=== PATIENT | male | born 1935 | race Caucasian/White ===

== ENCOUNTER 2018-06-04 13:28 | Inpatient (IN) | payer MEDICARE, MEDICAID ==
[2018-06-04 14:17] LABS: #Lymphocytes 0.5 thou/uL (1.20-3.40); #Monocytes 0.6 thou/uL (0.11-0.59); #Neutrophils 7.2 thou/uL (1.40-6.50); %Basophils 0.2 % (0.0-1.0); %Eosinophils 0.4 % (0.0-10.0); %Lymphocytes 5.7 % (21.0-51.0); %Monocytes 7.4 % (0.0-10.0); %Neutrophils 86.4 % (42.0-75.0); Mean Corpuscular HGB CONC 32.4 g/dL (32.0-36.0); Mean Corpuscular Hemoglobin 30.6 pg (27.0-31.0); Mean Corpuscular Volume 94.5 fL (78.0-98.0); Mean Platelet Volume 8.5 fL (7.4-10.4); Platelet Count 143 thou/uL (130-400); Red Blood Cell (RBC) Count 4.26 mill/uL (4.70-6.10); White Blood Cell (WBC) Count 8.3 thou/uL (4.8-10.8)
[2018-06-04] MEDS ORDERED: Piperacillin/Tazobactam 4.5 GM VIAL ONE (14:37)
[2018-06-04 14:38] LABS: ALT (SGPT) 49 U/L (8-55); AST (SGOT) 55 U/L (5-34); Albumin 3.2 g/dL (3.4-4.8); Alkaline Phosphatase 71 U/L (40-150); Anion Gap 9 mmol/L (10-20); BUN (Urea Nitrogen) 17 mg/dL (8.4-25.7); Bilirubin, Total 0.7 mg/dL (0.2-1.2); Calc. Creatinine Clearance 0 mL/min (70-130); Calcium 7.8 mg/dL (7.8-10.44); Carbon Dioxide 26 mmol/L (23-31); Chloride 105 mmol/L (98-107); Estimated GFR-MDRD 63; Globulin 2.8 g/dL (2.4-3.5); Glucose 105 mg/dL (83-110); Potassium 3.6 mmol/L (3.5-5.1); Sodium 136 mmol/L (136-145)
--- NOTE | 2018-06-04 14:58 | RAD ---
AP CHEST: HISTORY: Sepsis. Fever. Cough. COMPARISON: 02/05/2016 FINDINGS: The lungs appear clear of infiltrate. The heart is mildly enlarged. calcified granuloma in the left lung base again noted. Dense aortic calcification. IMPRESSION: There are chronic changes, as described. No focal infiltrate. POS: [facility]
--- NOTE | 2018-06-04 15:01 | CT ---
CT BRAIN WITHOUT CONTRAST: HISTORY: [facility] out of wheelchair today [facility] the [facility]. Altered mental status. COMPARISON: None. TECHNIQUE: Multiple contiguous axial images were obtained in a CT of the brain without contrast. FINDINGS: There are a few scattered hypodensities in the subcortical and periventricular white matter, likely s econdary to small vessel ischemic disease. No large confluent infarction is seen. There is no evide nce of hydrocephalus, intracranial hemorrhage, or extraaxial fluid collections. The calvarium and overlying soft tissues are unremarkable. The visualized paranasal sinuses and mast oid air cells are well aerated. IMPRESSION: No evidence of acute intracranial abnormality. POS: [facility]
[2018-06-04] MEDS ORDERED: Oseltamivir 75 MG CAP PO SCH ×2 (15:15→21:00)
[2018-06-04 15:45] LABS: Bilirubin Small (Negative); Blood, Urine Large (Negative); Clarity CLOUDY (Clear); Glucose, Urine (Dipstick) Negative (Negative); Leukocyte Negative (Negative); Nitrite Negative (Negative); Protein, Urine (Dipstick) 30 mg/dL (Neg-Trace); Specific Gravity, Urine 1.031 (1.002-1.036)
[2018-06-04 15:49] LABS: Bacteria/HPF None Seen HPF (None Seen); Hyaline Casts/LPF 4-6 HYALINE CAST LPF (0-3 Hyaline); Pathc Cast-AUWi Flag 0.54 (0-2.49); RBC/HPF GREATER THAN 50-TNTC HPF (0-3); Squamous Epithelial 0-3 HPF (0-3); WBC/HPF 0-3 HPF (0-3)
[2018-06-04] MEDS ORDERED: Ondansetron ODT 4 MG TAB PO PRN (16:06)
[2018-06-04] MEDS ORDERED: Zolpidem Tartrate 5 MG TAB PO PRN (16:06)
[2018-06-04 17:02] VITALS: BMI 27.0
--- NOTE | 2018-06-04 17:09 | HP ---
PRIMARY CARE PHYSICIAN: Dr. Ferro in [place]. The patient referred to [facility] by [facility]. The patient "fell out" this morning, just felt himself getting weaker and weaker, then fell to his knees and could not get up. He states he had been feeling bad for several days, coughing. No documented fever or chills. He does have some headaches and muscle aches. In the emergency room, he was found to be hypoxic. A flu A test was positive. Chest x-ray was nonrevealing. He was referred to the [facility]. PAST MEDICAL HISTORY: He had coronary artery disease with PCI 3 years ago, has a history of dyslipidemia and hypertension. He states he does not know his medications, but that he is on the same medications, [address] Rider discharged him on last; metoprolol 25 twice a day, lisinopril 10 mg a day, Plavix 75 mg a day, Lipitor 80 mg a day, aspirin 325 mg a day, and amiodarone 200 mg twice a day. ALLERGIES: NO KNOWN DRUG ALLERGIES. PAST SURGICAL HISTORY: He had an inguinal hernia repair as a child, otherwise negative, other than the PCI as mentioned above. FAMILY HISTORY: No coronary artery disease, hypertension, diabetes, or other inheritable diseases. SOCIAL HISTORY: He is . His had a stroke 5 years ago, and his stepdaughter took her away, and they have had no contact since. He states his stepdaughter told her he was going to get a divorce for her, but this has not happened that he knows of in the past 5 years. He is full code status, but was unable to name a surrogate decision maker. No tobacco. No alcohol. REVIEW OF SYSTEMS: GENERAL: No dizziness or fainting. EYES: No double vision, blurred vision, or flashing light. EAR, NOSE, AND THROAT: No ear pain or drainage. No nasal bleeding. No trouble swallowing. CARDIAC: No chest pain, orthopnea, or paroxysmal nocturnal dyspnea. RESPIRATIONS: He has been coughing a lot. He has had some wheezes in the morning, produced clear mucus sputum. GASTROINTESTINAL: No nausea, vomiting, diarrhea, or constipation. GENITOURINARY: No hematuria, dysuria, or nocturia. He does have a decreased stream. MUSCULOSKELETAL: No pain or swelling in his arms or legs. NEUROLOGIC: No strokes, seizures, or focal weakness. PSYCHIATRIC: He has some anxiety related to the separation from his and relationship with his stepdaughter. SKIN: No bruising, bleeding, or rash. HEME/LYMPH: No tender or swollen lymph nodes in the axilla, inguinal, or cervical area. PHYSICAL EXAMINATION: GENERAL: He is alert, oriented, cooperative, pleasant gentleman, oriented x3. VITAL SIGNS: His room air sat was less than 90. He is 95 on 3 L of O2. Maximum temperature in the ER was 103.1, pulse 81, respirations range from 28 to 36, and blood pressure 133/61. HEAD, EYES, EARS, NOSE, AND THROAT: Reveal pupils are equal, round, and reactive to light. Extraocular movements are intact. Sclerae white. Tympanic membranes clear. Nose clear. Oral mucous membranes are wet. Dental hygiene is good. NECK: Supple without jugular venous distention, adenopathy, or thyromegaly. CHEST: Clear to percussion, but decreased breath sounds and expiratory wheezes in all coreas, nothing focal. HEART: Regular rate and rhythm. First and second heart sounds are clear. There are no murmurs, no gallops. ABDOMEN: Soft. Bowel sounds are normal. There is no hepatosplenomegaly. No mass. No rebound. No bruits. EXTREMITIES: Reveal no cyanosis, clubbing, or edema. PULSES: Carotid, radial, femoral, and dorsalis pedis pulses intact. SKIN: Warm and dry without bruises or rash. HEME/LYMPH: Reveal no tender or swollen lymph nodes in the axilla, inguinal, or cervical area. No petechial hemorrhages in mucous membranes or nail beds. NEUROLOGIC: Cranial nerves 2 through 12 are intact. Deep tendon reflexes symmetric. Moves all extremities. DIAGNOSTIC DATA: Chest x-ray revealed no cardiomegaly, CHF, or infiltrate. There were some chronic changes, reviewed by me. EKG; regular sinus rhythm, left axis deviation, Q-waves in the anterior precordial leads consistent with an old anterior CO and intraventricular conduction defect, nonspecific, reviewed by me. LABORATORY DATA: CBC; white count 8.3 with absolute neutrophilia, hemoglobin 13.0, and platelet count 143,000. Chemistries; comprehensive metabolic profile is unremarkable except for AST of 95. Cardiac enzymes; troponins normal. Lab was positive for influenza A. ADMITTING DIAGNOSES: 1. Influenza A. 2. Asthma reaction. 3. Acute respiratory failure with hypoxemia. 4. Coronary artery disease. 5. Fever to 103. 6. Weakness. PLAN: 1. Tamiflu 75 b.i.d. 2. Blood cultures have been drawn. 3. O2 to keep the O2 saturation 92 or better. 4. DuoNeb q.6 hours. 5. Reinstitute home medicines. 6. Discussion: He does have fever, influenza, and respiratory failure with reactive airway disease; however, I see no evidence for IV antibiotics at this time. We will monitor closely. Job ID: [id number]
[2018-06-04] MEDS ORDERED: Metoprolol Tartrate 25 MG TAB ONE (20:21)
[2018-06-04] MEDS: Atorvastatin Calcium 40 MG TAB PO SCH (21:16)
[2018-06-04] MEDS: Metoprolol Tartrate 25 MG TAB PO SCH (21:16)
[2018-06-05] MEDS: Acetaminophen 325 MG TAB PO PRN ×2 (01:14→08:36)
[2018-06-05 08:20] LABS: Anion Gap 16 mmol/L (10-20); BUN (Urea Nitrogen) 16 mg/dL (8.4-25.7); Calc. Creatinine Clearance 63 mL/min (70-130); Calcium 7.9 mg/dL (7.8-10.44); Carbon Dioxide 21 mmol/L (23-31); Chloride 106 mmol/L (98-107); Estimated GFR-MDRD 67; Glucose 87 mg/dL (83-110); Potassium 3.8 mmol/L (3.5-5.1); Sodium 139 mmol/L (136-145)
[2018-06-05] MEDS: Clopidogrel Bisulfate 75 MG TAB PO SCH (08:36)
[2018-06-05] MEDS: Metoprolol Tartrate 25 MG TAB PO SCH ×2 (08:37→20:38)
[2018-06-05] MEDS: Amiodarone 200 MG TAB PO SCH (08:37)
[2018-06-05] MEDS: Lisinopril 10 MG TAB PO SCH (08:37)
[2018-06-05] MEDS: Oseltamivir 75 MG CAP PO SCH ×2 (08:38→21:35)
[2018-06-05] MEDS ORDERED: Enoxaparin Sodium 40 MG/0.4 ML SYRINGE SC SCH (09:00)
[2018-06-05] MEDS ORDERED: Aspirin 325 MG TAB PO SCH (09:00)
[2018-06-05 10:17] LABS: #Eosinphils 0.1 thou/uL (0.0-0.7); #Lymphocytes 2.1 thou/uL (1.20-3.40); #Monocytes 1.3 thou/uL (0.11-0.59); #Neutrophils 6.2 thou/uL (1.40-6.50); %Basophils 0.1 % (0.0-1.0); %Eosinophils 0.7 % (0.0-10.0); %Lymphocytes 21.9 % (21.0-51.0); %Monocytes 13.7 % (0.0-10.0); %Neutrophils 63.7 % (42.0-75.0); Band 6 % (5-11); Hemoglobin 14.6 g/dL (14.0-18.0); Lymphocytes 16 % (21-51); MDiff Complete? YES; Mean Corpuscular Hemoglobin 29.9 pg (27.0-31.0); Mean Corpuscular Volume 93.5 fL (78.0-98.0); Mean Platelet Volume 9.5 fL (7.4-10.4); Monocytes 9 % (0-10); Neutrophil 56 % (42-75); Platelet Count 93 thou/uL (130-400); Platelet Morphology Comment Appears Decreased; RBC Distribution Width 13.5 % (11.5-14.5); RBC Morphology Normal; Reactive Lymphocytes 11 % (0-10); Red Blood Cell (RBC) Count 4.87 mill/uL (4.70-6.10); White Blood Cell (WBC) Count 9.8 thou/uL (4.8-10.8)
[2018-06-05] MEDS ORDERED: Doxycycline 100 MG CAP PO SCH (13:45)
[2018-06-05] MEDS: cefTRIAXone\\ROCEPHIN 1 GM in Sodium Chloride 0.9% 100 ML IVPB SCH (14:42)
[2018-06-05] MEDS: Atorvastatin Calcium 40 MG TAB PO SCH (20:37)
[2018-06-05] MEDS: Doxycycline 100 MG CAP PO SCH (20:37)
[2018-06-05] MEDS: guaiFENesin ER 600 MG TAB PO SCH (20:38)
--- NOTE | 2018-06-05 22:20 | PDOC.PN ---
- Subjective Encounter Start Date: 06/05/18 Encounter Start Time: 14:00 Patient seen and examined for Flu/Pneumonia/Hypoxia. Feels gen weak. Cough +. No new complaints. No overnight events - Objective Resuscitation Status - Order Detail: 06/04/18 16:01 Resuscitation Status Routine Resuscitation Status: FULL: Full Resuscitation MAR Reviewed: Yes Vital Signs & Weight: Vital Signs (12 hours) Temp Pulse Pulse Resp BP BP Pulse Ox 06/05/18 20:00 92 L 06/05/18 19:58 98.0 F 70 20 150/72 H 92 L 06/05/18 19:17 62 16 94 L 06/05/18 15:31 119 H 146/66 H 06/05/18 13:39 80 12 Pulse Ox 06/05/18 20:00 06/05/18 19:58 06/05/18 19:17 06/05/18 15:31 93 L 06/05/18 13:39 Weight Weight 182 lb 15.739 oz Result Diagrams: 06/05/18 07:24 06/05/18 07:24 Radiology Reviewed by me: Yes (CXR ?Pneumonia) Phys Exam - Physical Examination Constitutional: NAD Respiratory: no wheezing Bibasilar rales with scat rhonchi Cardiovascular: RRR, no rub Gastrointestinal: soft, non-tender, positive bowel sounds Musculoskeletal: no edema Neurological: moves all 4 limbs Dx/Plan - Plan PT/OT, DVT proph w/SCDs 1. Sepsis due to Influenza A/Pneumonia ?Pneumococcal 2. Acute hypoxic resp failure due to #1 3. CAD 4. HTN 5. Dyslipidemia 6. Thrombocytopenia PLAN: Add Ceftriaxone/Doxy Cont Tamiflu Cont Nebs Cont current meds as below AM labs CXR in AM Hold Lovenox Review of Systems - Review of Systems Respiratory: negative: Cough, Dry, Shortness of Breath, Hemoptysis, SOB with Excertion, Pleuritic Pain, Sputum, Wheezing Cardiovascular: negative: chest pain, palpitations, orthopnea, paroxysmal nocturnal dyspnea, edema, light headedness, other - Medications/Allergies Allergies/Adverse Reactions: Allergies Allergy/AdvReac Type Severity Reaction Status Date / Time No Known Allergies Allergy Verified 06/04/18 22:20 Medications: Current Medications Acetaminophen (Tylenol) 650 mg PO Q4H PRN PRN Reason: Headache/Fever/Mild Pain (1-3) Last Admin: 06/05/18 08:36 Dose: 650 mg Albuterol/Ipratropium (Duoneb) 3 ml NEB [id number] [facility] Last Admin: 06/05/18 19:17 Dose: 3 ml Amiodarone HCl (Cordarone) 200 mg PO DAILY [facility] Last Admin: 06/05/18 08:37 Dose: 200 mg Aspirin (Ecotrin) 81 mg PO DAILY [facility] Atorvastatin Calcium (Lipitor) 80 mg PO HS [facility] Last Admin: 06/05/18 20:37 Dose: 80 mg Clopidogrel Bisulfate (Plavix) 75 mg PO DAILY [facility] Last Admin: 06/05/18 08:36 Dose: 75 mg Doxycycline Hyclate (Vibramycin) 100 mg PO BID [facility] Last Admin: 06/05/18 20:37 Dose: 100 mg Guaifenesin (Mucinex) 600 mg PO Q12HR [facility] Last Admin: 06/05/18 20:38 Dose: 600 mg Ceftriaxone Sodium 1 gm/ (Sodium Chloride) 100 mls @ 200 mls/hr IVPB Q24HR [facility] Last Admin: 06/05/18 14:42 Dose: 100 mls Lisinopril (Zestril) 10 mg PO DAILY [facility] Last Admin: 06/05/18 08:37 Dose: 10 mg Metoprolol Tartrate (Lopressor) 25 mg PO BID [facility] Last Admin: 06/05/18 20:38 Dose: 25 mg Ondansetron HCl (Zofran Odt) 4 mg PO Q6H PRN PRN Reason: Nausea/Vomiting Oseltamivir Phosphate (Tamiflu) 75 mg PO BID [facility] Stop: 06/09/18 21:01 Last Admin: 06/05/18 21:35 Dose: 75 mg Saccharomyces Boulardii (Florastor) 250 mg PO DAILY [facility] Zolpidem Tartrate (Ambien) 5 mg PO HSPRN PRN PRN Reason: Insomnia
[2018-06-06 06:03] LABS: Band 6 % (5-11); Hemoglobin 13.2 g/dL (14.0-18.0); Lymphocytes 18 % (21-51); MDiff Complete? YES; Mean Corpuscular HGB CONC 32.1 g/dL (32.0-36.0); Mean Corpuscular Hemoglobin 30.5 pg (27.0-31.0); Mean Corpuscular Volume 95.3 fL (78.0-98.0); Mean Platelet Volume 8.4 fL (7.4-10.4); Monocytes 6 % (0-10); Neutrophil 70 % (42-75); Platelet Count 144 thou/uL (130-400); Platelet Morphology Comment Appears Adequate; RBC Distribution Width 13.2 % (11.5-14.5); Red Blood Cell (RBC) Count 4.32 mill/uL (4.70-6.10); White Blood Cell (WBC) Count 5.7 thou/uL (4.8-10.8)
[2018-06-06 06:06] LABS: ALT (SGPT) 133 U/L (8-55); AST (SGOT) 125 U/L (5-34); Alkaline Phosphatase 64 U/L (40-150); Anion Gap 12 mmol/L (10-20); BUN (Urea Nitrogen) 14 mg/dL (8.4-25.7); Bilirubin, Total 0.4 mg/dL (0.2-1.2); Calc. Creatinine Clearance 73 mL/min (70-130); Calcium 7.7 mg/dL (7.8-10.44); Carbon Dioxide 27 mmol/L (23-31); Chloride 104 mmol/L (98-107); Estimated GFR-MDRD 79; Globulin 2.9 g/dL (2.4-3.5); Glucose 97 mg/dL (83-110); Magnesium 1.9 mg/dL (1.6-2.6); Phosphorus 2.7 mg/dL (2.3-4.7); Potassium 3.7 mmol/L (3.5-5.1); Protein, Total 5.9 g/dL (5.8-8.1); Sodium 139 mmol/L (136-145)
--- NOTE | 2018-06-06 07:31 | RAD ---
FRadiograph chest one view: 06/06/2018 7:17 AM HISTORY: 82-year-old male with sepsis. Hypoxia. Pneumonia follow-up. COMPARISON: 06/04/2018 2:09 PM radiograph FINDINGS: There has been interval development of small focal infiltrate at the medial base of the left lower lo be, in the retrocardiac region. No cardiomegaly or pulmonary edema. IMPRESSION: New small basilar left lower lobe infiltrate is suspicious for left lower lobe pneumonia.
[2018-06-06] MEDS: Budesonide 0.5 MG/2 ML NEB INH SCH ×2 (07:38→19:06)
[2018-06-06] MEDS: Clopidogrel Bisulfate 75 MG TAB PO SCH (08:45)
[2018-06-06] MEDS: Aspirin 81 mg Enteric Coated Tablet PO SCH (08:45)
[2018-06-06] MEDS: Saccharomyces boulardii 250 MG CAP PO SCH (08:45)
[2018-06-06] MEDS: Doxycycline 100 MG CAP PO SCH ×2 (08:45→20:26)
[2018-06-06] MEDS: Metoprolol Tartrate 25 MG TAB PO SCH ×2 (08:45→20:27)
[2018-06-06] MEDS: Amiodarone 200 MG TAB PO SCH (08:45)
[2018-06-06] MEDS: guaiFENesin ER 600 MG TAB PO SCH ×2 (08:45→20:26)
[2018-06-06] MEDS: Lisinopril 10 MG TAB PO SCH (08:45)
[2018-06-06] MEDS: Acetaminophen 325 MG TAB PO PRN (08:46)
[2018-06-06] MEDS: Oseltamivir 75 MG CAP PO SCH ×2 (08:46→20:27)
[2018-06-06] MEDS: cefTRIAXone\\ROCEPHIN 1 GM in Sodium Chloride 0.9% 100 ML IVPB SCH (13:27)
[2018-06-06] MEDS: Atorvastatin Calcium 40 MG TAB PO SCH (20:26)
--- NOTE | 2018-06-06 22:06 | PDOC.PN ---
- Subjective Encounter Start Date: 06/06/18 Encounter Start Time: 12:00 Patient seen and examined for Sepsis. Feels better. No new complaints. No overnight events - Objective Resuscitation Status - Order Detail: 06/04/18 16:01 Resuscitation Status Routine Resuscitation Status: FULL: Full Resuscitation MAR Reviewed: Yes Vital Signs & Weight: Vital Signs (12 hours) Temp Pulse Resp BP Pulse Ox 06/06/18 20:00 97.6 F 63 18 114/54 L 94 L 06/06/18 18:55 66 16 94 L 06/06/18 12:05 66 16 95 Weight Weight 182 lb 15.739 oz Result Diagrams: 06/06/18 05:17 06/06/18 05:17 Radiology Reviewed by me: Yes (CXR - Rales at Left base) Phys Exam - Physical Examination Constitutional: NAD Respiratory: no wheezing Bibasilar rales Cardiovascular: RRR, no rub Gastrointestinal: soft, non-tender, positive bowel sounds Musculoskeletal: no edema Dx/Plan - Plan DVT proph w/SCDs 1. Sepsis due to Influenza A/Pneumonia ?Pneumococcal 2. Acute hypoxic resp failure due to #1 3. CAD 4. HTN 5. Dyslipidemia 6. Thrombocytopenia 7. Abn LFTs - prob due to Sepsis PLAN: Cont Ceftriaxone/Doxy/Tamiflu Cont Nebs and other meds as below AM labs Review of Systems - Review of Systems Respiratory: Cough, Dry, SOB with Excertion Cardiovascular: negative: chest pain, palpitations, orthopnea, paroxysmal nocturnal dyspnea, edema, light headedness, other Gastrointestinal: negative: Nausea, Vomiting, Abdominal Pain, Diarrhea, Constipation, Melena, Hematochezia, Other - Medications/Allergies Allergies/Adverse Reactions: Allergies Allergy/AdvReac Type Severity Reaction Status Date / Time No Known Allergies Allergy Verified 06/04/18 22:20 Medications: Current Medications Acetaminophen (Tylenol) 650 mg PO Q4H PRN PRN Reason: Headache/Fever/Mild Pain (1-3) Last Admin: 06/06/18 08:46 Dose: 650 mg Albuterol/Ipratropium (Duoneb) 3 ml NEB [id number] [facility] Last Admin: 06/06/18 18:55 Dose: 3 ml Albuterol/Ipratropium (Duoneb) 3 ml NEB [id number] PRN PRN Reason: SOB &/or Wheezing Amiodarone HCl (Cordarone) 200 mg PO DAILY [facility] Last Admin: 06/06/18 08:45 Dose: 200 mg Aspirin (Ecotrin) 81 mg PO DAILY [facility] Last Admin: 06/06/18 08:45 Dose: 81 mg Atorvastatin Calcium (Lipitor) 80 mg PO HS [facility] Last Admin: 06/06/18 20:26 Dose: 80 mg Budesonide (Pulmicort Neb Solution) 0.5 mg INH BID-RT [facility] Last Admin: 06/06/18 19:06 Dose: 0.5 mg Clopidogrel Bisulfate (Plavix) 75 mg PO DAILY [facility] Last Admin: 06/06/18 08:45 Dose: 75 mg Doxycycline Hyclate (Vibramycin) 100 mg PO BID [facility] Last Admin: 06/06/18 20:26 Dose: 100 mg Guaifenesin (Mucinex) 600 mg PO Q12HR [facility] Last Admin: 06/06/18 20:26 Dose: 600 mg Ceftriaxone Sodium 1 gm/ (Sodium Chloride) 100 mls @ 200 mls/hr IVPB Q24HR [facility] Last Admin: 06/06/18 13:27 Dose: 100 mls Lisinopril (Zestril) 10 mg PO DAILY [facility] Last Admin: 06/06/18 08:45 Dose: 10 mg Metoprolol Tartrate (Lopressor) 25 mg PO BID [facility] Last Admin: 06/06/18 20:27 Dose: 25 mg Ondansetron HCl (Zofran Odt) 4 mg PO Q6H PRN PRN Reason: Nausea/Vomiting Oseltamivir Phosphate (Tamiflu) 75 mg PO BID [facility] Stop: 06/09/18 21:01 Last Admin: 06/06/18 20:27 Dose: 75 mg Saccharomyces Boulardii (Florastor) 250 mg PO DAILY [facility] Last Admin: 06/06/18 08:45 Dose: 250 mg
[2018-06-07 06:39] LABS: ALT (SGPT) 100 U/L (8-55); AST (SGOT) 75 U/L (5-34); Albumin 3.1 g/dL (3.4-4.8); Alkaline Phosphatase 63 U/L (40-150); Anion Gap 9 mmol/L (10-20); BUN (Urea Nitrogen) 11 mg/dL (8.4-25.7); Bilirubin, Total 0.4 mg/dL (0.2-1.2); Calc. Creatinine Clearance 78 mL/min (70-130); Carbon Dioxide 32 mmol/L (23-31); Chloride 102 mmol/L (98-107); Estimated GFR-MDRD 85; Glucose 90 mg/dL (83-110); Potassium 3.4 mmol/L (3.5-5.1); Protein, Total 6.1 g/dL (5.8-8.1); Sodium 140 mmol/L (136-145)
[2018-06-07] MEDS: Budesonide 0.5 MG/2 ML NEB INH SCH ×2 (06:47→18:22)
[2018-06-07 06:49] LABS: Band 2 % (5-11); Hemoglobin 12.7 g/dL (14.0-18.0); Hypochromia SLIGHT = 6-15 cells (100X) (0-5/hpf); Lymphocytes 7 % (21-51); MDiff Complete? YES; Mean Corpuscular Hemoglobin 30.4 pg (27.0-31.0); Mean Corpuscular Volume 94.8 fL (78.0-98.0); Mean Platelet Volume 8.5 fL (7.4-10.4); Monocytes 6 % (0-10); Neutrophil 84 % (42-75); Platelet Count 153 thou/uL (130-400); Platelet Morphology Comment Appears Adequate; RBC Distribution Width 13.2 % (11.5-14.5); Reactive Lymphocytes 1 % (0-10); Red Blood Cell (RBC) Count 4.18 mill/uL (4.70-6.10); White Blood Cell (WBC) Count 5.6 thou/uL (4.8-10.8)
[2018-06-07] MEDS: Doxycycline 100 MG CAP PO SCH ×2 (07:45→20:05)
[2018-06-07] MEDS: Lisinopril 10 MG TAB PO SCH (07:45)
[2018-06-07] MEDS: guaiFENesin ER 600 MG TAB PO SCH ×2 (07:46→20:06)
[2018-06-07] MEDS: Oseltamivir 75 MG CAP PO SCH ×2 (07:46→20:06)
[2018-06-07] MEDS: Aspirin 81 mg Enteric Coated Tablet PO SCH (07:46)
[2018-06-07] MEDS: Clopidogrel Bisulfate 75 MG TAB PO SCH (07:46)
[2018-06-07] MEDS: Saccharomyces boulardii 250 MG CAP PO SCH (07:46)
[2018-06-07] MEDS: Metoprolol Tartrate 25 MG TAB PO SCH ×2 (07:46→20:05)
[2018-06-07] MEDS: Amiodarone 200 MG TAB PO SCH (07:46)
[2018-06-07] MEDS: NS 0.9% w/ 20 MEQ KCL 1,000 ML/1,000 ML BAG IV SCH ×2 (07:47→20:05)
[2018-06-07] MEDS: cefTRIAXone\\ROCEPHIN 1 GM in Sodium Chloride 0.9% 100 ML IVPB SCH (14:42)
[2018-06-07] MEDS: Atorvastatin Calcium 40 MG TAB PO SCH (20:05)
--- NOTE | 2018-06-07 22:58 | PDOC.PN ---
- Subjective Encounter Start Date: 06/07/18 Encounter Start Time: 11:45 Patient seen and examined for Sepsis/Pneumonia. Feeling better. On O2. No new complaints. No overnight events - Objective Resuscitation Status - Order Detail: 06/04/18 16:01 Resuscitation Status Routine Resuscitation Status: FULL: Full Resuscitation MAR Reviewed: Yes Vital Signs & Weight: Vital Signs (12 hours) Temp Pulse Resp BP BP Pulse Ox 06/07/18 20:00 98 F 67 18 169/75 H 93 L 06/07/18 18:21 57 L 12 90 L 06/07/18 11:43 63 16 97 06/07/18 11:20 97.9 F 61 20 112/57 L 94 L Weight Weight 182 lb 15.739 oz I&O: 06/06/18 06/07/18 06/08/18 06:59 06:59 06:59 Intake Total 200 1077 Balance 200 1077 Result Diagrams: 06/07/18 05:32 06/07/18 05:32 Phys Exam - Physical Examination Constitutional: NAD Respiratory: no wheezing Rales at bases, Scat rhonchi Cardiovascular: RRR, no rub Gastrointestinal: soft, positive bowel sounds Musculoskeletal: no edema Dx/Plan - Plan DVT proph w/SCDs 1. Sepsis due to Influenza A/Pneumonia ?Pneumococcal 2. Acute hypoxic resp failure due to #1 3. CAD 4. HTN 5. Dyslipidemia 6. Thrombocytopenia 7. Abn LFTs - prob due to Sepsis 8. Hypokalemia PLAN: Replace Potassium Gentle IV hydration Cont Ceftriaxone/Doxy/Tamiflu Cont Nebs Cont other meds as below AM labs Review of Systems - Review of Systems Respiratory: Cough, Dry Cardiovascular: negative: chest pain, palpitations, orthopnea, paroxysmal nocturnal dyspnea, edema, light headedness, other Gastrointestinal: negative: Nausea, Vomiting, Abdominal Pain, Diarrhea, Constipation, Melena, Hematochezia, Other - Medications/Allergies Allergies/Adverse Reactions: Allergies Allergy/AdvReac Type Severity Reaction Status Date / Time No Known Allergies Allergy Verified 06/04/18 22:20 Medications: Current Medications Acetaminophen (Tylenol) 650 mg PO Q4H PRN PRN Reason: Headache/Fever/Mild Pain (1-3) Last Admin: 06/06/18 08:46 Dose: 650 mg Albuterol/Ipratropium (Duoneb) 3 ml NEB [id number] [facility] Last Admin: 06/07/18 18:21 Dose: 3 ml Albuterol/Ipratropium (Duoneb) 3 ml NEB [id number] PRN PRN Reason: SOB &/or Wheezing Amiodarone HCl (Cordarone) 200 mg PO DAILY [facility] Last Admin: 06/07/18 07:46 Dose: 200 mg Aspirin (Ecotrin) 81 mg PO DAILY [facility] Last Admin: 06/07/18 07:46 Dose: 81 mg Atorvastatin Calcium (Lipitor) 80 mg PO HS [facility] Last Admin: 06/07/18 20:05 Dose: 80 mg Budesonide (Pulmicort Neb Solution) 0.5 mg INH BID-RT [facility] Last Admin: 06/07/18 18:22 Dose: 0.5 mg Clopidogrel Bisulfate (Plavix) 75 mg PO DAILY [facility] Last Admin: 06/07/18 07:46 Dose: 75 mg Doxycycline Hyclate (Vibramycin) 100 mg PO BID [facility] Last Admin: 06/07/18 20:05 Dose: 100 mg Guaifenesin (Mucinex) 600 mg PO Q12HR [facility] Last Admin: 06/07/18 20:06 Dose: 600 mg Ceftriaxone Sodium 1 gm/ (Sodium Chloride) 100 mls @ 200 mls/hr IVPB Q24HR [facility] Last Admin: 06/07/18 14:42 Dose: 100 mls Potassium Chloride/Sodium Chloride (Ns 0.9% W/ 20 Meq Kcl) 1,000 ml in 1,000 mls @ 75 mls/hr IV .[id number] [facility] Last Admin: 06/07/18 20:05 Dose: 1,000 mls Lisinopril (Zestril) 10 mg PO DAILY [facility] Last Admin: 06/07/18 07:45 Dose: 10 mg Metoprolol Tartrate (Lopressor) 25 mg PO BID [facility] Last Admin: 06/07/18 20:05 Dose: 25 mg Ondansetron HCl (Zofran Odt) 4 mg PO Q6H PRN PRN Reason: Nausea/Vomiting Oseltamivir Phosphate (Tamiflu) 75 mg PO BID [facility] Stop: 06/09/18 21:01 Last Admin: 06/07/18 20:06 Dose: 75 mg Saccharomyces Boulardii (Florastor) 250 mg PO DAILY [facility] Last Admin: 03/28/19 07:46 Dose: 250 mg Sodium Chloride (Flush - Normal Saline) 10 ml IVF Q12HR [facility] Last Admin: 06/07/18 20:06 Dose: Not Given Sodium Chloride (Flush - Normal Saline) 10 ml IVF PRN PRN PRN Reason: Saline Flush
[2018-06-08 06:08] LABS: #Eosinphils 0.1 thou/uL (0.0-0.7); #Lymphocytes 1.1 thou/uL (1.20-3.40); #Monocytes 0.6 thou/uL (0.11-0.59); #Neutrophils 4.2 thou/uL (1.40-6.50); %Basophils 0.3 % (0.0-1.0); %Eosinophils 2.3 % (0.0-10.0); %Lymphocytes 18.9 % (21.0-51.0); %Monocytes 9.7 % (0.0-10.0); %Neutrophils 68.8 % (42.0-75.0); Mean Corpuscular HGB CONC 31.6 g/dL (32.0-36.0); Mean Corpuscular Hemoglobin 30.2 pg (27.0-31.0); Mean Corpuscular Volume 95.4 fL (78.0-98.0); Platelet Count 161 thou/uL (130-400); RBC Distribution Width 13.4 % (11.5-14.5); Red Blood Cell (RBC) Count 4.64 mill/uL (4.70-6.10)
[2018-06-08] MEDS: Budesonide 0.5 MG/2 ML NEB INH SCH ×2 (06:08→18:44)
[2018-06-08 06:27] LABS: Anion Gap 14 mmol/L (10-20); BUN (Urea Nitrogen) 11 mg/dL (8.4-25.7); Calc. Creatinine Clearance 78 mL/min (70-130); Calcium 8.4 mg/dL (7.8-10.44); Carbon Dioxide 25 mmol/L (23-31); Chloride 105 mmol/L (98-107); Estimated GFR-MDRD 85; Glucose 80 mg/dL (83-110); Potassium 4.6 mmol/L (3.5-5.1); Sodium 139 mmol/L (136-145)
[2018-06-08] MEDS: Doxycycline 100 MG CAP PO SCH ×2 (09:22→20:11)
[2018-06-08] MEDS: Saccharomyces boulardii 250 MG CAP PO SCH (09:22)
[2018-06-08] MEDS: Lisinopril 10 MG TAB PO SCH (09:22)
[2018-06-08] MEDS: Clopidogrel Bisulfate 75 MG TAB PO SCH (09:23)
[2018-06-08] MEDS: Metoprolol Tartrate 25 MG TAB PO SCH ×2 (09:23→20:10)
[2018-06-08] MEDS: guaiFENesin ER 600 MG TAB PO SCH ×2 (09:23→20:10)
[2018-06-08] MEDS: Aspirin 81 mg Enteric Coated Tablet PO SCH (09:23)
[2018-06-08] MEDS: Amiodarone 200 MG TAB PO SCH (09:23)
[2018-06-08] MEDS: Oseltamivir 75 MG CAP PO SCH ×2 (09:23→20:10)
[2018-06-08] MEDS: cefTRIAXone\\ROCEPHIN 1 GM in Sodium Chloride 0.9% 100 ML IVPB SCH (15:34)
[2018-06-08] MEDS: Atorvastatin Calcium 40 MG TAB PO SCH (20:10)
--- NOTE | 2018-06-08 22:53 | PDOC.PN ---
- Subjective Encounter Start Date: 06/08/18 Encounter Start Time: 12:45 Patient seen and examined for Resp failure. On 2 lit O2. Feeling better. Dry cough +. No other complaints. No overnight events - Objective Resuscitation Status - Order Detail: 06/04/18 16:01 Resuscitation Status Routine Resuscitation Status: FULL: Full Resuscitation MAR Reviewed: Yes Vital Signs & Weight: Vital Signs (12 hours) Temp Pulse Resp BP Pulse Ox 06/08/18 20:45 98.3 F 67 20 160/74 H 94 L 06/08/18 18:44 67 16 93 L 06/08/18 11:40 69 18 93 L Weight Weight 182 lb 15.739 oz I&O: 06/07/18 06/08/18 06/09/18 06:59 06:59 06:59 Intake Total 200 2127 Output Total 1050 Balance 200 1077 Result Diagrams: 06/08/18 05:41 06/08/18 05:41 Phys Exam - Physical Examination Constitutional: NAD Respiratory: no wheezing, no rhonchi Bibasilar rales Cardiovascular: RRR, no rub Gastrointestinal: soft, non-tender, positive bowel sounds Musculoskeletal: no edema Neurological: moves all 4 limbs Dx/Plan - Plan DVT proph w/SCDs 1. Sepsis due to Influenza A/Pneumonia ?Pneumococcal 2. Acute hypoxic resp failure due to #1 3. CAD 4. HTN 5. Dyslipidemia 6. Thrombocytopenia 7. Abn LFTs - prob due to Sepsis 8. Hypokalemia PLAN: Cont Ceftriaxone/Doxy/Tamiflu Cont Nebs and other meds as below DC in AM if on Room air Review of Systems - Review of Systems Cardiovascular: negative: chest pain, palpitations, orthopnea, paroxysmal nocturnal dyspnea, edema, light headedness, other Gastrointestinal: negative: Nausea, Vomiting, Abdominal Pain, Diarrhea, Constipation, Melena, Hematochezia, Other - Medications/Allergies Allergies/Adverse Reactions: Allergies Allergy/AdvReac Type Severity Reaction Status Date / Time No Known Allergies Allergy Verified 06/04/18 22:20 Medications: Current Medications Acetaminophen (Tylenol) 650 mg PO Q4H PRN PRN Reason: Headache/Fever/Mild Pain (1-3) Last Admin: 06/06/18 08:46 Dose: 650 mg Albuterol/Ipratropium (Duoneb) 3 ml NEB [id number] [facility] Last Admin: 06/08/18 18:44 Dose: 3 ml Albuterol/Ipratropium (Duoneb) 3 ml NEB [id number] PRN PRN Reason: SOB &/or Wheezing Amiodarone HCl (Cordarone) 200 mg PO DAILY [facility] Last Admin: 06/08/18 09:23 Dose: 200 mg Aspirin (Ecotrin) 81 mg PO DAILY [facility] Last Admin: 06/08/18 09:23 Dose: 81 mg Atorvastatin Calcium (Lipitor) 80 mg PO HS [facility] Last Admin: 06/08/18 20:10 Dose: 80 mg Budesonide (Pulmicort Neb Solution) 0.5 mg INH BID-RT [facility] Last Admin: 06/08/18 18:44 Dose: 0.5 mg Clopidogrel Bisulfate (Plavix) 75 mg PO DAILY [facility] Last Admin: 06/08/18 09:23 Dose: 75 mg Doxycycline Hyclate (Vibramycin) 100 mg PO BID [facility] Last Admin: 06/08/18 20:11 Dose: 100 mg Guaifenesin (Mucinex) 600 mg PO Q12HR [facility] Last Admin: 06/08/18 20:10 Dose: 600 mg Ceftriaxone Sodium 1 gm/ (Sodium Chloride) 100 mls @ 200 mls/hr IVPB Q24HR [facility] Last Admin: 06/08/18 15:34 Dose: 100 mls Lisinopril (Zestril) 10 mg PO DAILY [facility] Last Admin: 06/08/18 09:22 Dose: 10 mg Metoprolol Tartrate (Lopressor) 25 mg PO BID [facility] Last Admin: 06/08/18 20:10 Dose: 25 mg Ondansetron HCl (Zofran Odt) 4 mg PO Q6H PRN PRN Reason: Nausea/Vomiting Oseltamivir Phosphate (Tamiflu) 75 mg PO BID [facility] Stop: 06/09/18 21:01 Last Admin: 06/08/18 20:10 Dose: 75 mg Saccharomyces Boulardii (Florastor) 250 mg PO DAILY [facility] Last Admin: 06/08/18 09:22 Dose: 250 mg Sodium Chloride (Flush - Normal Saline) 10 ml IVF Q12HR [facility] Last Admin: 06/08/18 20:11 Dose: 10 ml Sodium Chloride (Flush - Normal Saline) 10 ml IVF PRN PRN PRN Reason: Saline Flush
[2018-06-09] MEDS: Budesonide 0.5 MG/2 ML NEB INH SCH ×2 (06:57→19:22)
[2018-06-09] MEDS: Oseltamivir 75 MG CAP PO SCH ×2 (08:45→20:22)
[2018-06-09] MEDS: Lisinopril 10 MG TAB PO SCH (08:45)
[2018-06-09] MEDS: Metoprolol Tartrate 25 MG TAB PO SCH ×2 (08:45→20:21)
[2018-06-09] MEDS: Clopidogrel Bisulfate 75 MG TAB PO SCH (08:45)
[2018-06-09] MEDS: Doxycycline 100 MG CAP PO SCH ×2 (08:45→20:21)
[2018-06-09] MEDS: Amiodarone 200 MG TAB PO SCH (08:45)
[2018-06-09] MEDS: Aspirin 81 mg Enteric Coated Tablet PO SCH (08:45)
[2018-06-09] MEDS: guaiFENesin ER 600 MG TAB PO SCH ×2 (08:46→20:21)
[2018-06-09] MEDS: Saccharomyces boulardii 250 MG CAP PO SCH (08:46)
[2018-06-09] MEDS ORDERED: cefTRIAXone\\ROCEPHIN 1 GM VIAL ONE (13:00)
[2018-06-09] MEDS: cefTRIAXone\\ROCEPHIN 1 GM in Sodium Chloride 0.9% 100 ML IVPB SCH (13:02)
[2018-06-09] MEDS: Atorvastatin Calcium 40 MG TAB PO SCH (20:21)
--- NOTE | 2018-06-09 21:12 | EKG ---
Test Reason : Blood Pressure : / mmHG Vent. Rate : 081 BPM Atrial Rate : 081 BPM P-R Int : 150 ms QRS Dur : 136 ms QT Int : 430 ms P-R-T Axes : 077 -52 053 degrees QTc Int : 499 ms Normal sinus rhythm Left axis deviation Non-specific intra-ventricular conduction block Cannot rule out Anteroseptal infarct , age undetermined Abnormal ECG Confirmed by CAROLYNE RICKETTS DO ([id number]), editor at large JEREMIE CRESPO ([id number]) on 06/09/2018 9:11:28 PM Referred By: Confirmed By:CAROLYNE RICKETTS DO
--- NOTE | 2018-06-09 22:24 | PDOC.PN ---
- Subjective Encounter Start Date: 06/09/18 Encounter Start Time: 13:45 Patient seen and examined for Pneumonia/Flu. On O2 NC. O2 sats 89-90% on RA per RN. No new complaints. No overnight events - Objective Resuscitation Status - Order Detail: 06/04/18 16:01 Resuscitation Status Routine Resuscitation Status: FULL: Full Resuscitation MAR Reviewed: Yes Vital Signs & Weight: Vital Signs (12 hours) Temp Pulse Resp BP Pulse Ox 06/09/18 20:00 98.1 F 66 16 158/76 H 91 L 06/09/18 19:21 69 18 91 L 06/09/18 16:23 92 L 06/09/18 14:03 64 16 95 Weight Weight 182 lb 15.739 oz I&O: 06/08/18 06/09/18 06/10/18 06:59 06:59 06:59 Intake Total 2127 400 600 Output Total 1050 200 Balance 1077 200 600 Result Diagrams: 06/08/18 05:41 06/08/18 05:41 Phys Exam - Physical Examination Constitutional: NAD Respiratory: no wheezing, no rhonchi Rales at bases Cardiovascular: RRR, no rub Gastrointestinal: soft, non-tender, positive bowel sounds Musculoskeletal: no edema Dx/Plan - Plan DVT proph w/SCDs 1. Sepsis due to Influenza A/Pneumonia ?Pneumococcal 2. Acute hypoxic resp failure due to #1 3. CAD 4. HTN 5. Dyslipidemia 6. Thrombocytopenia 7. Abn LFTs - prob due to Sepsis 8. Hypokalemia PLAN: Cont Ceftriaxone/Doxy Cont Tamiflu Cont Nebs Cont other meds as below DC in AM if stable Review of Systems - Review of Systems Respiratory: Cough, Dry. negative: Shortness of Breath, Hemoptysis, SOB with Excertion, Pleuritic Pain, Sputum, Wheezing Cardiovascular: negative: chest pain, palpitations, orthopnea, paroxysmal nocturnal dyspnea, edema, light headedness, other Gastrointestinal: negative: Nausea, Vomiting, Abdominal Pain, Diarrhea, Constipation, Melena, Hematochezia, Other - Medications/Allergies Allergies/Adverse Reactions: Allergies Allergy/AdvReac Type Severity Reaction Status Date / Time No Known Allergies Allergy Verified 06/04/18 22:20 Medications: Current Medications Acetaminophen (Tylenol) 650 mg PO Q4H PRN PRN Reason: Headache/Fever/Mild Pain (1-3) Last Admin: 06/06/18 08:46 Dose: 650 mg Albuterol/Ipratropium (Duoneb) 3 ml NEB [id number] [facility] Last Admin: 06/09/18 19:21 Dose: 3 ml Albuterol/Ipratropium (Duoneb) 3 ml NEB [id number] PRN PRN Reason: SOB &/or Wheezing Amiodarone HCl (Cordarone) 200 mg PO DAILY [facility] Last Admin: 06/09/18 08:45 Dose: 200 mg Aspirin (Ecotrin) 81 mg PO DAILY [facility] Last Admin: 06/09/18 08:45 Dose: 81 mg Atorvastatin Calcium (Lipitor) 80 mg PO HS [facility] Last Admin: 06/09/18 20:21 Dose: 80 mg Budesonide (Pulmicort Neb Solution) 0.5 mg INH BID-RT [facility] Last Admin: 06/09/18 19:22 Dose: 0.5 mg Clopidogrel Bisulfate (Plavix) 75 mg PO DAILY [facility] Last Admin: 06/09/18 08:45 Dose: 75 mg Doxycycline Hyclate (Vibramycin) 100 mg PO BID [facility] Last Admin: 06/09/18 20:21 Dose: 100 mg Guaifenesin (Mucinex) 600 mg PO Q12HR [facility] Last Admin: 06/09/18 20:21 Dose: 600 mg Ceftriaxone Sodium 1 gm/ (Sodium Chloride) 100 mls @ 200 mls/hr IVPB Q24HR [facility] Last Admin: 06/09/18 13:02 Dose: Not Given Lisinopril (Zestril) 10 mg PO DAILY [facility] Last Admin: 06/09/18 08:45 Dose: 10 mg Metoprolol Tartrate (Lopressor) 25 mg PO BID [facility] Last Admin: 06/09/18 20:21 Dose: 25 mg Ondansetron HCl (Zofran Odt) 4 mg PO Q6H PRN PRN Reason: Nausea/Vomiting Saccharomyces Boulardii (Florastor) 250 mg PO DAILY [facility] Last Admin: 06/09/18 08:46 Dose: 250 mg Sodium Chloride (Flush - Normal Saline) 10 ml IVF Q12HR [facility] Last Admin: 06/09/18 20:22 Dose: 10 ml Sodium Chloride (Flush - Normal Saline) 10 ml IVF PRN PRN PRN Reason: Saline Flush
[2018-06-10] MEDS: Budesonide 0.5 MG/2 ML NEB INH SCH ×2 (06:34→18:54)
[2018-06-10] MEDS: Amiodarone 200 MG TAB PO SCH (07:41)
[2018-06-10] MEDS: guaiFENesin ER 600 MG TAB PO SCH ×2 (07:41→20:16)
[2018-06-10] MEDS: Aspirin 81 mg Enteric Coated Tablet PO SCH (07:41)
[2018-06-10] MEDS: Lisinopril 10 MG TAB PO SCH (07:41)
[2018-06-10] MEDS: Clopidogrel Bisulfate 75 MG TAB PO SCH (07:41)
[2018-06-10] MEDS: Doxycycline 100 MG CAP PO SCH ×2 (07:41→20:15)
[2018-06-10] MEDS: Saccharomyces boulardii 250 MG CAP PO SCH (07:41)
[2018-06-10] MEDS: Metoprolol Tartrate 25 MG TAB PO SCH ×2 (07:42→20:16)
[2018-06-10] MEDS: cefTRIAXone\\ROCEPHIN 1 GM in Sodium Chloride 0.9% 100 ML IVPB SCH ×2 (13:54→14:13)
--- NOTE | 2018-06-10 14:36 | PRG ---
DATE OF SERVICE: 06/10/2018 SUBJECTIVE: The patient is seen and examined at bedside. He is doing quite well. His appetite is fair. OBJECTIVE: VITAL SIGNS: Blood pressure is 148/75, pulse is 66, temperature is 97.6, respirations are 20, and O2 saturation is 96% to 100% on room air. HEENT: His head is atraumatic and normocephalic. Eyes are PERRLA. Sclerae are nonicteric. Oral mucosa is moist. NECK: Supple. No lymphadenopathy. LUNGS: Clear. HEART: S1 and S2, normal. ABDOMEN: Soft, nontender, and obese. EXTREMITIES: No clubbing, cyanosis, or edema. NEUROLOGIC: He is alert and oriented x4. There is no any motor or sensory deficits present. Cranial nerves are intact. LABORATORY DATA: None. IMPRESSION: 1. Sepsis due to influenza A/pneumonia. 2. Acute hypoxic respiratory failure due to number one. 3. Coronary artery disease. 4. Hypertension. 5. Hypokalemia, resolved. 6. Thrombocytopenia. 7. Abnormal LFTs, most likely due to sepsis. PLAN: The discharge plan was discussed with the patient. He tells me that there is nobody to come and pick him up today. He is asking to continue his IV antibiotic and discharge him tomorrow. Tomorrow, he will have to come and pick him up, so we will continue his current regimen for now and as stated above, we will discharge him as soon as he can get a ride. Job ID: [id number]
[2018-06-10] MEDS: Atorvastatin Calcium 40 MG TAB PO SCH (20:15)
[2018-06-11] MEDS: Budesonide 0.5 MG/2 ML NEB INH SCH (06:59)
[2018-06-11] MEDS: Clopidogrel Bisulfate 75 MG TAB PO SCH (08:22)
[2018-06-11] MEDS: Metoprolol Tartrate 25 MG TAB PO SCH (08:23)
[2018-06-11] MEDS: Doxycycline 100 MG CAP PO SCH (08:23)
[2018-06-11] MEDS: Saccharomyces boulardii 250 MG CAP PO SCH (08:23)
[2018-06-11] MEDS: Amiodarone 200 MG TAB PO SCH (08:23)
[2018-06-11] MEDS: Lisinopril 10 MG TAB PO SCH (08:23)
[2018-06-11] MEDS: Aspirin 81 mg Enteric Coated Tablet PO SCH (08:23)
[2018-06-11] MEDS: guaiFENesin ER 600 MG TAB PO SCH (08:23)
--- NOTE | 2018-06-11 11:59 | DIS ---
DATE OF ADMISSION: 06/04/2018 DATE OF DISCHARGE: 06/11/2018 DIAGNOSES AT THE TIME OF DISCHARGE: 1. Sepsis due to influenza A. 2. Acute hypoxic respiratory failure with acute reactive airway disease. 3. Coronary artery disease. 4. Hypertension. 5. Hyperkalemia, resolved. 6. Thrombocytopenia, . 7. Abnormal LFTs, most likely due to sepsis. HOSPITAL COURSE: The patient is an 82-year-old male, who was admitted to the hospital. He became weak to the point that he fell to his knees and could not get up. Apparently, he was feeling bad for several days. He started coughing. He denied any fever or chills. He had headaches and muscle aches. In the emergency room, he was found to be hypoxic. Flu A test came back positive. The chest x-ray was nonrevealing. At the time of emergency room evaluation, his temperature was 103.1 and respirations were up to 28 to 36. His white count was 8.3, hemoglobin 13.0, and platelet count was 143. Chemistry was unremarkable except for AST, which was 95. Cardiac enzymes and troponins were normal. Chest x-ray revealed cardiomegaly, some CHF or infiltrate. 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 He was started on Tamiflu 75 mg twice a day. Blood cultures were drawn. He was continued on O2 and DuoNeb every 6 hours. Next day, ceftriaxone and doxycycline were added to the regimen because of possible infectious pneumonia present. Chest x-ray showed new small basilar left lower lobe infiltrate, which was suspicious for left lower lobe pneumonia. He was continued on Rocephin and doxycycline. He improved gradually. Microbiology showed no growth on his blood cultures, no growth on his urine culture. Clinically, he is doing well. He is on room air, his temperature is 97.9, blood pressure is 156/75, respiratory rate is 18, and pulse is 70. He is able to ambulate without any problems. He is doing well. His appetite is back to normal. He is discharged to home with recommendation to stay on heart-healthy diet and activities as tolerated. I contacted Dr. Rider because there was a question whether the patient is supposed to be on amiodarone, and apparently, the last time he was seen at Dr. Rider's office was in 2017, so he recommends to follow up with him in the next 2 to 3 weeks if it is possible and he will make a decision about continuation of his amiodarone. DISCHARGE MEDICATIONS: The patient's medications at the time of discharge: 1. Metoprolol 25 mg twice a day. 2. Clopidogrel 75 mg once a day. 3. Atorvastatin 80 mg at bedtime. 4. Aspirin 81 mg once a day. 5. Lisinopril 10 mg once a day. 6. Doxycycline 100 mg twice a day for additional 4 days. 7. Florastor 250 mg once a day. He was seen and examined before he was discharge and discharge time was less than 30 minutes. Job ID: [id number]
[2018-06-11 12:08] VITALS: BP 141/70; TEMP 97.7
== END 2018-06-11 13:50 | disposition home health service (06) | DRG 871 ==
LOC: ERS 13:28 → ERHOLD 15:13 → T4-B 21:50
PROVIDERS: ADMIT Internal Medicine; ATTEND Internal Medicine
DX: A41.89 Other specified sepsis (principal); J96.21 Acute and chronic respiratory failure with hypoxia; J10.1 Influenza due to other identified influenza virus with other respiratory manifestations; I25.10 Atherosclerotic heart disease of native coronary artery without angina pectoris; D69.6 Thrombocytopenia, unspecified; E78.5 Hyperlipidemia, unspecified; E87.6 Hypokalemia; Z79.82 Long term (current) use of aspirin; Z79.899 Other long term (current) drug therapy
CPT/HCPCS: 36415; 51701; 70450; 71045; 80048; 80053; 81003; 81015; 83605; 83735; 83880; 84100; 84484; 85007; 85025; 85027; 87040; 87086; 87804; 93005; 94640; 96361; 96365; J0696; J1650; J2543; J7050; J7620; J7626